=== PATIENT | female | born 1995 | race Caucasian/White ===

== ENCOUNTER 2020-07-17 23:24 | Emergency (ER) | payer OTHER ==
[~2020-07-17] VITALS: Ht 165.1 cm; Wt 80.9 kg
[2020-07-17 23:36] VITALS: Ht 165.1 cm; Wt 80.9 kg
[2020-07-18 03:11] LABS: BASOPHIL % 0.3 % (0-2); PLATELET COUNT 255 x10^3mcL (130-400); RED CELL DISTRIBUTION WIDTH 12.6 % (11.5-14.5)
[2020-07-18 04:36] VITALS: BP 130/77
== END 2020-07-18 04:36 | disposition home or self-care (01) ==
LOC: ED 23:24
PROVIDERS: Student in an Organized Health Care Education/Training Program
DX: N93.9 Abnormal uterine and vaginal bleeding, unspecified (principal)